=== PATIENT | male | born 1970 | race Caucasian/White ===

== ENCOUNTER 2022-11-20 14:01 | Outpatient (CLI) | payer MEDICARE, MEDICAID | END 2022-11-20 23:59 | disposition home or self-care (01) | LOC: RAD 14:01 | PROVIDERS: ATTEND Family Medicine | DX: L08.9 Local infection of the skin and subcutaneous tissue, unspecified (principal) | CPT/HCPCS: 76882 ==

== ENCOUNTER 2023-01-06 11:11 | Day surgery (SDC) | payer MEDICARE, MEDICAID ==
[~2023-01-06] VITALS: Ht 121.9 cm; Wt 89.8 kg
[2023-01-06] MEDS ORDERED: ALLO100T PO (11:53)
[2023-01-06] MEDS ORDERED: METH-603 PO (11:53)
[2023-01-06] MEDS ORDERED: ALBU18HF2 (11:53)
[2023-01-06] MEDS ORDERED: LISI5TAB22 PO (11:53)
[2023-01-06] MEDS ORDERED: FIBER PO (11:53)
[2023-01-06] MEDS ORDERED: VIT1CAPS14 PO (11:53)
[2023-01-06] MEDS ORDERED: AMLO10TA13 PO (11:53)
[2023-01-06] MEDS ORDERED: ASPI-1397 PO (11:53)
[2023-01-06] MEDS ORDERED: ONDA4TAB12 SL (11:53)
[2023-01-06] MEDS ORDERED: OXYC-658 PO (11:53)
[2023-01-06] MEDS ORDERED: CHOL100017 PO (11:53)
[2023-01-06] MEDS ORDERED: SODI650T29 PO (11:53)
[2023-01-06] MEDS ORDERED: MODA200T48 PO (11:53)
[2023-01-06] MEDS ORDERED: MULT-1085 PO (11:53)
[2023-01-06] MEDS ORDERED: FLUT1AER PO (11:53)
[2023-01-06] MEDS ORDERED: LOSA25TA41 PO (11:53)
[2023-01-06] MEDS ORDERED: OMEP40CA21 PO (11:53)
[2023-01-06] MEDS ORDERED: normal saline 1000ml 1,000 ML IV PRN (12:05)
--- NOTE | 2023-01-06 12:40 | NUR ---
Procedure cancelled by Dr. Garcia due to patients level of pain an inability to comfortably remain in the prone position for the procedure. Patient to be scheduled for proecdure under anesthesia.
== END 2023-01-06 12:47 | disposition home or self-care (01) ==
LOC: SSTAY O 11:11
PROVIDERS: ATTEND Radiology Diagnostic Radiology
DX: I12.9 Hypertensive chronic kidney disease with stage 1 through stage 4 chronic kidney disease, or unspecified chronic kidney disease (principal); Z53.8 Procedure and treatment not carried out for other reasons; N18.4 Chronic kidney disease, stage 4 (severe); R80.8 Other proteinuria; J44.9 Chronic obstructive pulmonary disease, unspecified; E78.5 Hyperlipidemia, unspecified; Z79.899 Other long term (current) drug therapy; Z89.619 Acquired absence of unspecified leg above knee
CPT/HCPCS: J7030

== ENCOUNTER 2024-09-21 09:45 | Outpatient (CLI) | payer MEDICARE, MEDICAID ==
[~2024-09-21 09:45] MED LIST: ALBU18HF2; ALLO100T PO; AMLO10TA13 PO; ASPI-1397 PO; CHOL100017 PO; FIBER PO; FLUT1AER PO; LISI5TAB22 PO; LOSA25TA41 PO; METH-603 PO; MODA200T48 PO; MULT-1085 PO; OMEP40CA21 PO; ONDA-243 SL; OXYC-658 PO; SODI650T29 PO; VIT1CAPS14 PO
--- NOTE | 2024-09-21 12:11 | RADIOLOGY REPORT ---
CLINICAL HISTORY: LUNG MASS TECHNIQUE: CT of the chest was performed without intravenous contrast. This exam was performed accord ing to our departmental dose optimization program. Up-to-date CT equipment and radiation dose reducti on techniques are utilized as appropriate. COMPARISON: None FINDINGS: Lower Neck: Unremarkable Axilla, Mediastinum and Enriqueta: No axillary lymphadenopathy. Limited evaluation of the enriqueta in the abs ence of intravenous contrast. There are calcified left hilar lymph nodes. There are prominent mediast inal lymph nodes for example a precarinal lymph node on series 2, image 33 which measures 1.2 cm in s hort axis dimension. Heart and Great Vessels: Normal-sized heart without pericardial effusion. Thoracic aorta is normal i n caliber. There is mild calcified atherosclerotic plaque in the thoracic aorta. Moderate aortic valv e calcifications. Moderate 3-vessel calcified coronary artery disease. The central pulmonary arterie s are normal caliber. Airway, Lungs and Pleura: Trachea and central airways are patent although there is mild dependent ins pissated secretions in the trachea extending into the right mainstem bronchus and bronchus intermediu s. Irregular soft tissue somewhat patchy in the anterior right upper lobe measuring 3.5 x 3.2 cm on s eries 2, image 39. There is mild bronchial wall thickening. There is moderate centrilobular emphysem a. Sub 5 mm left lower lobe pulmonary nodule on series 3, images 39 and 44, in the right lower lobe o n images 34, 38, 41, 44, in the right upper lobe on images 18, 29, 30. Calcified granuloma in the le ft upper lobe. Scattered linear areas of scarring or atelectasis bilaterally. Upper Abdomen: There are nonobstructed loops of small bowel coursing into a right upper abdominal abd ominal wall hernia (series 2, image 89). The left kidney appears atrophic. Chest Wall and Osseous Structures: Marked right glenohumeral arthrosis. Mild multilevel thoracic spon dylosis. There are scattered dural calcifications mostly posterior in the thoracic spinal cord. No de structive osseous lesion. Small symmetric bilateral gynecomastia. IMPRESSION: 1. Irregular somewhat patchy soft tissue in the anterior right upper lobe. This could reflect a pneum onia. Neoplasm is also a concern. Options for follow-up include PET-CT, biopsy, or short-term follow -up CT chest in 3 months.. Any prior imaging if available. 2. Mild mediastinal lymphadenopathy is indeterminate on this initial examination and can be re-evalua nancy on follow-up imaging. 3. Moderate emphysema. 4. Multiple sub 5 mm bilateral pulmonary nodules, nonspecific on initial exam. Attention on follow-up imaging until 2 year stability is confirmed. 5. Moderate aortic valve calcifications and 3-vessel calcified coronary artery disease. 6. Nonobstructed small-bowel loops course into a right upper abdominal wall hernia. This is partially imaged. Radiation optimization: All CT scans at this facility use at least one of these dose optimization dylan hniques: automated exposure control mA and/or kV adjustment per patient size (includes targeted exam s where dose is matched to clinical indication) or iterative reconstruction.
== END 2024-09-21 23:59 | disposition home or self-care (01) ==
LOC: RAD 09:45
PROVIDERS: ATTEND Family Medicine
DX: J43.2 Centrilobular emphysema (principal); R91.8 Other nonspecific abnormal finding of lung field; I25.10 Atherosclerotic heart disease of native coronary artery without angina pectoris; I70.0 Atherosclerosis of aorta; M47.814 Spondylosis without myelopathy or radiculopathy, thoracic region; M40.294 Other kyphosis, thoracic region; N62 Hypertrophy of breast; N26.1 Atrophy of kidney (terminal)
CPT/HCPCS: 71250

== ENCOUNTER 2024-12-27 09:38 | Outpatient (CLI) | payer MEDICARE, MEDICAID ==
--- NOTE | 2024-12-27 13:23 | RADIOLOGY REPORT ---
CT CT CHEST INDICATION: ABNORMAL FINDINGS ON DX IMAGING OF OTH BODY STRUCTURES EXAM DATE: 12/27/2024 10:18 AM COMPARISON: CT CT CHEST on DOS: 09/21/24 RADIATION DOSE: CTDIvol: 18 mGy, DLP: 739 mGy*cm PROCEDURE: Helical CT images were obtained of the chest without intravenous contrast. Sagittal and c oronal reconstructions are provided. ADDITIONAL IMAGES / REFORMATS: None All CT scans at this medical facility are performed using dose modulation techniques as appropriate t o a performed exam including the following: Automated exposure control was utilized; adjustment of th e MA and/or KV according to patient size; and use of iterative reconstruction technique. FINDINGS: Bones: Scattered degenerative changes are noted. Visualized Abdomen: Complex ventral abdominal wall hernia. Chest Wall: Normal. Soft tissues: Normal. Mediastinum: Normal. Heart: Coronary artery calcifications are noted. Vessels: Normal. Lymph Nodes: Calcified left perihilar lymph nodes are similar. Pleura: Normal. Airways: Normal. Lung: Severe lung emphysema. Previously noted irregular area in the right anterior upper lobe is not seen on this examination, and could have been atelectasis / consolidation. Bibasilar atelectasis. 1. 0 cm HARSHIL calcified granuloma. Other: None IMPRESSION: Severe lung emphysema. Previously noted irregular area in the right anterior upper lobe is not seen o n this examination, and could have been atelectasis / consolidation. Bibasilar atelectasis. 1.0 cm HARSHIL calcified granuloma. Lung rads 1, continue 12 month LDCT.
== END 2024-12-27 23:59 | disposition home or self-care (01) ==
LOC: RAD 09:38
PROVIDERS: ATTEND Physician Assistant
DX: I25.10 Atherosclerotic heart disease of native coronary artery without angina pectoris (principal); M47.814 Spondylosis without myelopathy or radiculopathy, thoracic region; R93.89 Abnormal findings on diagnostic imaging of other specified body structures; K43.9 Ventral hernia without obstruction or gangrene; R59.0 Localized enlarged lymph nodes
CPT/HCPCS: 71250